=== PATIENT | female | born 1990 | race Caucasian/White ===

== ENCOUNTER 2017-07-23 09:48 | Emergency (ER) | payer OTHER ==
[~2017-07-23] VITALS: Ht 154.9 cm; Wt 80.0 kg
[~2017-07-23 09:48] MED LIST: AZIT250T94 PO; IBUP800T25 PO; LORA1TAB54 PO
[2017-07-23 09:50] VITALS: Ht 154.9 cm; Wt 80.0 kg
--- NOTE | 2017-07-23 11:32 | RADRPT ---
PROCEDURE: XR Finger. CLINICAL INDICATION: Third digit pain TECHNIQUE: Three views of the right third finger are available for review. COMPARISON: None available FINDINGS: There is a minimally displaced fracture at the tuft of the third distal phalanx, which is age indete rminate. The fracture line is still visualized. The remaining osseous structures are intact. The art icular surfaces are preserved. There is mild soft tissue swelling over the third distal phalanx. IMPRESSION: 1. Minimally displaced fracture at the tuft of the third distal phalanx, age indeterminate. RPTAT: HH .Dougie Hunter MD, MD Date Time Electronically viewed and signed by .Dougie Hunter MD, MD on 07/23/2017 11:32 .d/
[2017-07-23] MEDS ORDERED: ACET1TAB40 PO (11:41)
[2017-07-23] MEDS ORDERED: IBUP-1542 PO (11:41)
[2017-07-23] MEDS ORDERED: IBUPROFEN 600 MG TAB PO ONE (12:00)
--- NOTE | 2017-07-23 12:10 | ERD ---
ER Documentation Chief Complaint Date/Time DATE: 07/23/17 TIME: 12:09 Chief Complaint right middle finger pain/injury HPI 27-year-old male complains of right middle finger pain after getting it caught in a car door yesterday. She had some bleeding from underneath the nail. She has bruising. She has no restricted range of motion or weakness or redness. ROS All systems reviewed and are negative except as per history of present illness. Medications Home Meds Active Scripts Acetaminophen with Codeine (Acetaminophen-Cod #3 Tablet) 1 Each Tablet, 1 TAB PO Q6H Y for PAIN, #7 TAB Prov:KRISTOPHER ELLSWORTH MD 07/23/17 Ibuprofen* (Motrin*) 600 Mg Tab, 600 MG PO Q6, #15 TAB Prov:KRISTOPHER ELLSWORTH MD 07/23/17 Loratadine/Pseudoephedrine* (Claritin-D* 12 Hr) 5-120 Mg Tab.er.12h, 1 TAB PO Q12, #30 TAB.SA Prov:FABIANA MESSER DO 01/25/16 Ibuprofen* (Motrin*) 800 Mg Tab, 800 MG PO Q6H Y for PAIN AND OR ELEVATED TEMP, #30 TAB Prov:FABIANA MESSER DO 16 Azithromycin* (Zithromax*) 250 Mg Tablet, 250 MG PO .ZPACK DIRECTED, #6 TAB TAKE 500 MG (2 TABS) THE FIRST DAY THEN 250 MG (1 TAB) DAYS 2-5 Prov:FABIANA MESSER DO 01/25/16 Allergies Allergies: Coded Allergies: No Known Allergy (Unverified , 04/09/12) PMhx/Soc Medical and Surgical Hx: pt denies Medical Hx, pt denies Surgical Hx History of Surgery: No Anesthesia Reaction: No Hx Neurological Disorder: No Hx Respiratory Disorders: No Hx Cardiac Disorders: No Hx Psychiatric Problems: No Hx Miscellaneous Medical Probl: No Hx Alcohol Use: No Hx Substance Use: No Hx Tobacco Use: No Smoking Status: Never smoker Physical Exam Vitals Vital Signs Date Time Temp Pulse Resp B/P Pulse Ox O2 Delivery O2 Flow Rate FiO2 07/23/17 09:50 98.5 96 18 129/69 96 Physical Exam Const: [], [id number] per Head: Atraumatic Eyes: Normal Conjunctiva ENT: Normal External Ears, Nose and Mouth. Neck: Full range of motion..~ No meningismus. Resp: Clear to auscultation bilaterally Cardio: Regular rate and rhythm, no murmurs Abd: Soft, non tender, non distended. Normal bowel sounds Skin: No petechiae or rashes Back: No midline or flank tenderness Ext: No cyanosis, or edema. Right middle finger with some bruising on the pad. There is no restricted range of motion weakness or deformities with some dried blood around the nail. It is difficult to assess the nail due to nail ukrainian. Neur: Awake and alert Psych: Normal Mood and Affect Results 24 hrs Current Medications Medications (Trade) Dose Ordered Sig/Carolann Route PRN Reason Start Time Stop Time Status Last Admin Dose Admin Ibuprofen (Motrin) 600 mg ONCE ONCE PO 07/23/17 12:00 07/23/17 12:01 DC 07/23/17 12:02 Procedures/MDM X-ray Finger 2V Interpreted by me: Bones: Non-displaced fracture of the tuft of the right middle finger. Joints: [No dislocation] Foreign body: [None] -non-displaced fracture of the tuft of the right middle finger. Patient presents with likely subungual hematoma and right distal middle finger fracture without dislocation, signs of infection or ischemia or deficits. She was placed in right middle finger metal splint and was neurovascular intact after the splint. She will be discharged home with primary care and orthopedic follow-up. The patient was stable with no new complaints during the ER course. Clinically, there is no current evidence to suggest meningitis, sepsis, acute abdomen, pneumonia, acute coronary syndrome, pulmonary embolism, or any other emergent condition appearing to require further evaluation or hospitalization. The patient should certainly return for any new or worsening symptoms per the aftercare instructions. They should otherwise follow-up with her primary care doctor for reevaluation this week. Departure Diagnosis: Primary Impression: Finger fracture, left Encounter type: initial encounter Finger: middle finger Fracture type: closed Phalanx: distal Fracture alignment: nondisplaced Qualified Code: S62.663A - Closed nondisplaced fracture of distal phalanx of left middle finger , initial encounter Condition: Stable Patient Instructions: Finger and Toe Fractures (Broken Finger or Toe) Referrals: MICHAEL GONZALEZ MD [facility] Additional Instructions: Nondisplaced fracture seen on x-ray. Recheck with primary doctor and orthopedist for further evaluation within the next week. Recheck sooner for fevers, redness, new symptoms. May need authorization from primary doctor for orthopedist visit. KRISTOPHER ELLSWORTH MD Jul 23, 2017 12:10
== END 2017-07-23 12:15 | disposition home or self-care (01) ==
LOC: FTE 09:48
DX: S62.663A Nondisplaced fracture of distal phalanx of left middle finger, initial encounter for closed fracture (principal); W23.0XXA Caught, crushed, jammed, or pinched between moving objects, initial encounter; Y92.9 Unspecified place or not applicable
CPT/HCPCS: 29130; 73140; Z7502; Z7610

== ENCOUNTER 2017-10-14 08:04 | Emergency (ER) | END 2017-10-14 10:58 | disposition home or self-care (01) ==